=== PATIENT | female | born 1945 | race Caucasian/White ===

== ENCOUNTER 2019-08-05 09:51 | Inpatient (IN) ==
[2019-08-05] MEDS ORDERED: Isovue-370 500 ML BOTTLE IVP ONE ×3 (10:14→12:48)
[2019-08-05 10:50] LABS: Basophils # 0.2 K/mcL (0.0-0.2); Basophils % 0.7 %; Eosinophils # 0.2 K/mcL (0.0-0.6); Hematocrit 50.5 % (35.3-44.9); Hemoglobin 16.6 g/dL (11.5-15.4); Immature Granulocytes % 0.8 % (0-4); Lymphocytes # 3.1 K/mcL (0.6-4.6); Lymphocytes % 14.5 %; Mean Corpuscular HGB Conc 32.9 g/dL (31.6-35.5); Mean Corpuscular Hemoglobin 31.1 pg (28.0-33.3); Mean Corpuscular Volume 94.6 fL (83.0-100.0); Monocytes # 1.1 K/mcL (0.0-1.3); Monocytes % 5.1 %; Neutrophils # 16.9 K/mcL (1.6-8.9); Platelet Count 316 K/mcL (140-400); Red Blood Count 5.34 M/mcL (3.82-4.97); Red Cell Distribution Width 12.9 % (11.5-14.5); Segmented Neutrophils % 77.9 %; White Blood Count 21.7 K/mcL (4.3-11.1)
[2019-08-05 11:08] LABS: Prothrombin Time 11.9 Seconds (9.4-12.1)
[2019-08-05 11:11] LABS: Activated Partial Thrombo Time 26.3 Seconds (26.0-36.0)
[2019-08-05 11:12] LABS: Alanine Aminotransferase 21 Units/L (7-52); Albumin 4.4 g/dL (3.5-5.7); Albumin/Globulin Ratio 1.5 (1.1-2.2); Alkaline Phosphatase 80 Units/L (34-104); Aspartate Amino Transferase 18 Units/L (13-39); BUN/Creatinine Ratio 17 (6-26); Blood Urea Nitrogen 15 mg/dL (8-23); Calcium 9.3 mg/dL (8.6-10.3); Carbon Dioxide 22 mEq/L (23-29); Chloride 101 mEq/L (98-107); Glucose 297 mg/dL (70-105); Osmolality,Calculated 292 (280-300); Potassium 3.8 mEq/L (3.5-5.1); Sodium 135 mEq/L (136-145); Total Protein 7.4 g/dL (6.4-8.9); Troponin I < 0.03 ng/mL (< 0.04); eGFR For African Americans > 60 (> 60); eGFR For Non-African Americans > 60 (> 60)
[2019-08-05] MEDS ORDERED: Azithromycin 500 MG in 0.9 % Sodium Chloride 250 ML IVPB ONE (12:40)
[2019-08-05] MEDS ORDERED: Ondansetron 4 MG/2 ML VIAL IVP PRN (14:07)
[2019-08-05] MEDS ORDERED: Naloxone 0.4 MG/ML INJ IVP PRN (14:07)
[2019-08-05] MEDS ORDERED: Heparin 1,000 UNITS/500 mL 1,000 ML ONE (14:15)
[2019-08-05 14:18] LABS: ABG Base Excess -7 mEq/L (-2 to 3); ABG HCO3 24 mEq/L (21-27); ABG Oxygen Saturation 92 % (95-98); ABG PCO2 74 mmHg (35-45); ABG PH 7.12 pH Units (7.32-7.45); ABG PO2 84 mmHg (85-104); ABG TCO2 26 mEq/L (20-26); Blood Gas VT 14 cc
[2019-08-05] MEDS ORDERED: *HR* Rocuronium Bromide 50 MG/5 ML VIAL ONE ×2 (14:21→17:20)
[2019-08-05] MEDS ORDERED: Ondansetron 4 MG/2 ML VIAL ONE (14:22)
[2019-08-05] MEDS ORDERED: 0.9 % Sodium Chloride 500 ML ONE (14:43)
[2019-08-05] MEDS ORDERED: Dexamethasone 4 MG/ML VIAL ONE (15:19)
[2019-08-05] MEDS ORDERED: *HR* FentaNYL (PF) 100 MCG/2 ML VIAL ONE (15:20)
[2019-08-05] MEDS ORDERED: *HR* Propofol 200 MG/20 ML VIAL IVP ONE (15:20)
[2019-08-05] MEDS ORDERED: *HR* Heparin 5,000 UNIT/ML VIAL ONE (15:31)
[2019-08-05] MEDS ORDERED: Heparin 1,000 UNITS/500 mL 500 ML ONE (16:08)
[2019-08-05] MEDS: Vancomycin 1,250 MG/262.5 ML IV.SOLN IVPB SCH (16:50)
[2019-08-05] MEDS ORDERED: *HR* Rocuronium Bromide 50 MG/5 ML VIAL IVP ONE (17:09)
[2019-08-05] MEDS ORDERED: *HR* Etomidate 20 MG/10 ML AMPUL IVP ONE (17:09)
[2019-08-05] MEDS ORDERED: *HR* PHENYLEPHRINE 1,000 MCG/10 ML SYRINGE IVP ONE ×2 (17:15→17:41)
[2019-08-05] MEDS ORDERED: EPHEDrine 50 MG/ML VIAL ONE (17:18)
[2019-08-05] MEDS ORDERED: *HR* Vasopressin 20 UNIT/ML VIAL ONE (17:19)
[2019-08-05] MEDS ORDERED: Calcium Gluconate 1,000 MG/10 ML VIAL ONE (17:19)
[2019-08-05] MEDS ORDERED: Aminoglycoside Consult 1 EACH MC ONE (17:20)
[2019-08-05] MEDS ORDERED: Insulin Regular, Human 100 UNIT/ML ONE (17:25)
[2019-08-05] MEDS ORDERED: *HR* Heparin 5,000 UNIT/ML VIAL IVP PRN ×2 (19:27)
[2019-08-05] MEDS ORDERED: *HR* LORazepam 2 MG/ML VIAL IVP PRN ×3 (19:31)
[2019-08-05] MEDS ORDERED: *HR* Promethazine 25 MG/ML VIAL IVP PRN (19:31)
[2019-08-05 19:43] LABS: ABG Base Excess -9 mEq/L (-2 to 3); ABG HCO3 19 mEq/L (21-27); ABG Oxygen Saturation 96 % (95-98); ABG PCO2 48 mmHg (35-45); ABG PO2 97 mmHg (85-104); ABG TCO2 20 mEq/L (20-26); Blood Gas Modality ASSIST CONTROL; Blood Gas VT 450 cc
[2019-08-05] MEDS ORDERED: Midazolam HCl 50 MG/100 ML IV.SOLN IVC SCH (19:45)
[2019-08-05] MEDS: Piperacillin/Tazobactam 3.375 GM in 0.9 % Sodium Chloride Mini Bag 100 ML IVPB SCH (19:56)
[2019-08-05] MEDS: methylPREDNISolone 125 MG/2 ML VIAL IVP SCH ×2 (19:56→23:25)
[2019-08-05] MEDS: FentaNYL (PF) 1,000 MCG/100 ML IV.SOLN IVC SCH ×2 (19:57→20:46)
[2019-08-05] MEDS: Heparin 25,000 UNIT/250 ML D5W 25,000 UNIT/250 ML IV.SOLN IVC SCH (19:59)
[2019-08-05] MEDS: Ipratropium/Albuterol Neb 3 ML IH SCH ×2 (20:04→23:49)
[2019-08-05 20:13] LABS: VBG Ionized Calcium 1.18 mmol/L (1.15-1.35)
[2019-08-05 20:16] LABS: Basophils % 0.2 %; Hematocrit 46.7 % (35.3-44.9); Immature Granulocytes % 0.6 % (0-4); Lymphocytes # 0.6 K/mcL (0.6-4.6); Lymphocytes % 2.8 %; Mean Corpuscular HGB Conc 31.5 g/dL (31.6-35.5); Mean Corpuscular Hemoglobin 30.1 pg (28.0-33.3); Mean Corpuscular Volume 95.5 fL (83.0-100.0); Mean Platelet Volume 11.4 fL (9.4-12.4); Monocytes # 0.7 K/mcL (0.0-1.3); Monocytes % 3.5 %; Neutrophils # 19.6 K/mcL (1.6-8.9); Platelet Count 240 K/mcL (140-400); Red Blood Count 4.89 M/mcL (3.82-4.97); Segmented Neutrophils % 92.9 %; White Blood Count 21.1 K/mcL (4.3-11.1)
[2019-08-05 20:17] LABS: Hemoglobin 14.7 g/dL (11.5-15.4); INR 1.2; Prothrombin Time 14.1 Seconds (9.4-12.1)
[2019-08-05 20:22] LABS: Heparin anti-factor XA UFH 1.16 IU/mL (0.30-0.70)
[2019-08-05] MEDS ORDERED: Artificial Tears SOLN 15 ML BOTTLE BOTH EYES PRN (20:25)
[2019-08-05 20:30] LABS: BUN/Creatinine Ratio 20 (6-26); Blood Urea Nitrogen 16 mg/dL (8-23); Calcium 8.2 mg/dL (8.6-10.3); Carbon Dioxide 17 mEq/L (23-29); Chloride 110 mEq/L (98-107); Glucose 205 mg/dL (70-105); Magnesium 1.7 mg/dL (1.6-2.6); Osmolality,Calculated 295 (280-300); Potassium 4.1 mEq/L (3.5-5.1); Sodium 139 mEq/L (136-145); eGFR For African Americans > 60 (> 60); eGFR For Non-African Americans > 60 (> 60)
[2019-08-05] MEDS: Chlorhexidine Rinse 15 ML MOUTHWASH MM SCH (20:48)
[2019-08-05] MEDS: Artificial Tears SOLN 15 ML BOTTLE BOTH EYES SCH (20:48)
[2019-08-05] MEDS ORDERED: Perflutren Lipid Microsphere 1.3 ML in 0.9 % Sodium Chloride 8.7 ML IVP ONE (20:50)
[2019-08-05 21:20] LABS: Bilirubin,Urine Negative (Negative); Blood,Urine Small (Negative); Clarity,Urine Clear (Clear); Color,Urine Light-Yellow (Yellow); Glucose,Urine (UA) 500 mg/dL (Normal); Ketones,Urine Negative (Negative); Leukocyte Esterase,Urine Negative (Negative); Mucus,Urine Few per lpf (None-Few); Nitrite,Urine Negative (Negative); Protein,Urine 30 mg/dL (Neg-Trace); RBC,Urine 0-3 per hpf (0-3); Specific Gravity,Urine > 1.030 (1.010-1.025); Squamous Epithelial Cell,Urine Few per hpf (None-Few); Urobilinogen,Urine Normal (Normal); WBC,Urine 0-3 per hpf (0-3)
[2019-08-05 21:29] LABS: Amphetamine Screen,Urine Negative ng/mL (Cutoff=1000); Barbiturate Screen,Urine Negative ng/mL (Cutoff=200); Benzodiazepines Screen,Urine Negative ng/mL (Cutoff=200); Cannabinoid Screen,Urine Negative ng/mL (Cutoff = 50); Cocaine Screen,Urine Negative ng/mL (Cutoff= 300); Opiate Screen,Urine Negative ng/mL (Cutoff=300); Phencyclidine Screen,Urine Negative ng/mL (Cutoff=25)
[2019-08-05 23:53] LABS: ABG Base Excess -9 mEq/L (-2 to 3); ABG HCO3 19 mEq/L (21-27); ABG Oxygen Saturation 99 % (95-98); ABG PCO2 47 mmHg (35-45); ABG PH 7.21 pH Units (7.32-7.45); ABG PO2 138 mmHg (85-104); ABG TCO2 20 mEq/L (20-26); Blood Gas Modality ASSIST CONTROL; Blood Gas VT 450 cc
[2019-08-06] MEDS: Piperacillin/Tazobactam 3.375 GM in 0.9 % Sodium Chloride Mini Bag 100 ML IVPB SCH ×4 (00:32→23:30)
[2019-08-06] MEDS: Insulin LISPRO 300 UNITS/3 ML VIAL SQ SCH ×4 (00:39→18:15)
[2019-08-06] MEDS ORDERED: 0.9 % Sodium Chloride 1,000 ML IVC SCH (01:00)
[2019-08-06] MEDS: Vancomycin 1,250 MG/262.5 ML IV.SOLN IVPB SCH ×2 (03:18→16:26)
[2019-08-06] MEDS: Artificial Tears SOLN 15 ML BOTTLE BOTH EYES SCH ×2 (03:18→09:00)
[2019-08-06 03:28] LABS: Basophils % 0.1 %; Hematocrit 43.9 % (35.3-44.9); Immature Granulocytes % 0.3 % (0-4); Lymphocytes # 0.5 K/mcL (0.6-4.6); Lymphocytes % 2.3 %; Mean Corpuscular HGB Conc 31.9 g/dL (31.6-35.5); Mean Corpuscular Hemoglobin 30.2 pg (28.0-33.3); Mean Corpuscular Volume 94.6 fL (83.0-100.0); Mean Platelet Volume 11.5 fL (9.4-12.4); Monocytes # 0.6 K/mcL (0.0-1.3); Monocytes % 2.7 %; Neutrophils # 19.1 K/mcL (1.6-8.9); Platelet Count 207 K/mcL (140-400); Red Blood Count 4.64 M/mcL (3.82-4.97); Segmented Neutrophils % 94.6 %; White Blood Count 20.2 K/mcL (4.3-11.1)
[2019-08-06 03:45] LABS: BUN/Creatinine Ratio 17 (6-26); Blood Urea Nitrogen 16 mg/dL (8-23); Carbon Dioxide 15 mEq/L (23-29); Chloride 108 mEq/L (98-107); Glucose 301 mg/dL (70-105); Magnesium 1.8 mg/dL (1.6-2.6); Osmolality,Calculated 298 (280-300); Potassium 3.9 mEq/L (3.5-5.1); Sodium 138 mEq/L (136-145); eGFR For African Americans > 60 (> 60); eGFR For Non-African Americans 57 (> 60)
[2019-08-06] MEDS: Ipratropium/Albuterol Neb 3 ML IH SCH ×6 (04:11→23:21)
[2019-08-06 04:21] LABS: ABG Base Excess -9 mEq/L (-2 to 3); ABG HCO3 17 mEq/L (21-27); ABG Oxygen Saturation 96 % (95-98); ABG PCO2 37 mmHg (35-45); ABG PH 7.27 pH Units (7.32-7.45); ABG PO2 89 mmHg (85-104); ABG TCO2 18 mEq/L (20-26); Blood Gas Modality ASSIST CONTROL; Blood Gas VT 450 cc
[2019-08-06] MEDS ORDERED: Calcium Gluconate 1gm/50mL 1 GM/50 ML BAG IVPB PRN (05:23)
[2019-08-06] MEDS: Doxycycline 100 MG in 0.9 % Sodium Chloride Mini Bag 100 ML IVPB SCH ×2 (05:38→16:23)
[2019-08-06] MEDS: methylPREDNISolone 125 MG/2 ML VIAL IVP SCH ×4 (05:38→23:30)
[2019-08-06] MEDS: Pantoprazole 40 MG VIAL IVP SCH (09:00)
[2019-08-06] MEDS: Chlorhexidine Rinse 15 ML MOUTHWASH MM SCH (09:00)
[2019-08-06] MEDS: Dexmedetomidine HCl 400 MCG/100 ML MLS IVC SCH (09:16)
[2019-08-06 09:17] LABS: ABG Base Excess -4 mEq/L (-2 to 3); ABG HCO3 21 mEq/L (21-27); ABG Oxygen Saturation 95 % (95-98); ABG PCO2 37 mmHg (35-45); ABG PH 7.36 pH Units (7.32-7.45); ABG PO2 77 mmHg (85-104); ABG TCO2 22 mEq/L (20-26); Blood Gas Modality CPAP/PS
[2019-08-06 12:19] LABS: BUN/Creatinine Ratio 17 (6-26); Blood Urea Nitrogen 15 mg/dL (8-23); Calcium 7.9 mg/dL (8.6-10.3); Carbon Dioxide 21 mEq/L (23-29); Chloride 111 mEq/L (98-107); Glucose 229 mg/dL (70-105); Magnesium 2.2 mg/dL (1.6-2.6); Osmolality,Calculated 296 (280-300); Potassium 4.1 mEq/L (3.5-5.1); Sodium 139 mEq/L (136-145); eGFR For African Americans > 60 (> 60); eGFR For Non-African Americans > 60 (> 60)
[2019-08-06] MEDS ORDERED: Sodium Bicarbonate 150 MEQ in D5% in Water 1,000 ML IVC SCH (12:45)
[2019-08-06] MEDS: Thiamine (B-1) 100 MG, Folic Acid 1 MG, MVI, adult with vitamin K 10 ML in 0.9 % Sodi... IVPB SCH (16:23)
[2019-08-06 19:30] LABS: BUN/Creatinine Ratio 20 (6-26); Blood Urea Nitrogen 16 mg/dL (8-23); Calcium 8.3 mg/dL (8.6-10.3); Carbon Dioxide 23 mEq/L (23-29); Chloride 112 mEq/L (98-107); Glucose 166 mg/dL (70-105); Osmolality,Calculated 297 (280-300); Potassium 4.4 mEq/L (3.5-5.1); Sodium 141 mEq/L (136-145); eGFR For African Americans > 60 (> 60); eGFR For Non-African Americans > 60 (> 60)
[2019-08-07] MEDS: Insulin LISPRO 300 UNITS/3 ML VIAL SQ SCH ×5 (00:16→23:50)
[2019-08-07] MEDS ORDERED: *HR* Metoprolol 5 MG/5 ML VIAL IVP ONE (03:26)
[2019-08-07 03:31] LABS: Basophils % 0.1 %; Hematocrit 38.4 % (35.3-44.9); Hemoglobin 12.6 g/dL (11.5-15.4); Immature Granulocytes % 0.8 % (0-4); Lymphocytes # 0.5 K/mcL (0.6-4.6); Lymphocytes % 2.5 %; Mean Corpuscular HGB Conc 32.8 g/dL (31.6-35.5); Mean Corpuscular Hemoglobin 31.1 pg (28.0-33.3); Mean Corpuscular Volume 94.8 fL (83.0-100.0); Mean Platelet Volume 11.6 fL (9.4-12.4); Monocytes # 0.7 K/mcL (0.0-1.3); Platelet Count 188 K/mcL (140-400); Red Blood Count 4.05 M/mcL (3.82-4.97); Red Cell Distribution Width 13.3 % (11.5-14.5); Segmented Neutrophils % 93.6 %; White Blood Count 21.3 K/mcL (4.3-11.1)
[2019-08-07] MEDS: Levalbuterol Neb 1.25 MG/3 ML IH SCH ×4 (03:47→21:50)
[2019-08-07 03:48] LABS: BUN/Creatinine Ratio 23 (6-26); Blood Urea Nitrogen 19 mg/dL (8-23); Calcium 8.4 mg/dL (8.6-10.3); Carbon Dioxide 21 mEq/L (23-29); Chloride 110 mEq/L (98-107); Glucose 178 mg/dL (70-105); Osmolality,Calculated 295 (280-300); Potassium 4.3 mEq/L (3.5-5.1); Sodium 139 mEq/L (136-145); eGFR For African Americans > 60 (> 60); eGFR For Non-African Americans > 60 (> 60)
[2019-08-07] MEDS: Vancomycin 1,250 MG/262.5 ML IV.SOLN IVPB SCH ×2 (04:13→16:24)
[2019-08-07] MEDS: Heparin 25,000 UNIT/250 ML D5W 25,000 UNIT/250 ML IV.SOLN IVC SCH (04:26)
[2019-08-07] MEDS: Dexmedetomidine HCl 400 MCG/100 ML MLS IVC SCH (04:34)
[2019-08-07] MEDS ORDERED: *HR* Metoprolol 5 MG/5 ML VIAL IVP PRN (05:05)
[2019-08-07] MEDS: methylPREDNISolone 125 MG/2 ML VIAL IVP SCH ×4 (05:14→23:05)
[2019-08-07] MEDS: Doxycycline 100 MG in 0.9 % Sodium Chloride Mini Bag 100 ML IVPB SCH ×2 (05:14→18:02)
[2019-08-07] MEDS: Piperacillin/Tazobactam 3.375 GM in 0.9 % Sodium Chloride Mini Bag 100 ML IVPB SCH ×3 (08:16→23:05)
[2019-08-07] MEDS: Pantoprazole 40 MG VIAL IVP SCH (08:19)
[2019-08-07 08:52] LABS: Magnesium 2.3 mg/dL (1.6-2.6); Phosphorous 3.3 mg/dL (2.7-4.5)
[2019-08-07 09:26] LABS: ABG Base Excess 0 mEq/L (-2 to 3); ABG HCO3 25 mEq/L (21-27); ABG Oxygen Saturation 96 % (95-98); ABG PCO2 42 mmHg (35-45); ABG PH 7.38 pH Units (7.32-7.45); ABG PO2 85 mmHg (85-104); ABG TCO2 26 mEq/L (20-26)
[2019-08-07 10:00] LABS: Albumin 3.2 g/dL (3.5-5.7); Albumin/Globulin Ratio 1.3 (1.1-2.2); Bilirubin,Direct 0.3 mg/dL (0.0-0.2); Bilirubin,Indirect 0.5 mg/dL (0.0-1.0); Bilirubin,Total 0.8 mg/dL (0.3-1.0); Globulin 2.5 g/dL (2.4-3.5); Total Protein 5.7 g/dL (6.4-8.9)
[2019-08-07 16:20] LABS: Chol/HDL Ratio 3.7 (0-4.9)
[2019-08-07] MEDS: Thiamine (B-1) 100 MG, Folic Acid 1 MG, MVI, adult with vitamin K 10 ML in 0.9 % Sodi... IVPB SCH (19:12)
[2019-08-08] MEDS: Dexmedetomidine HCl 400 MCG/100 ML MLS IVC SCH (00:14)
[2019-08-08] MEDS: Vancomycin 1,250 MG/262.5 ML IV.SOLN IVPB SCH (03:05)
[2019-08-08] MEDS: Levalbuterol Neb 1.25 MG/3 ML IH SCH ×4 (04:13→22:46)
[2019-08-08] MEDS: methylPREDNISolone 125 MG/2 ML VIAL IVP SCH (05:18)
[2019-08-08] MEDS: Doxycycline 100 MG in 0.9 % Sodium Chloride Mini Bag 100 ML IVPB SCH (05:18)
[2019-08-08] MEDS: Insulin LISPRO 300 UNITS/3 ML VIAL SQ SCH ×4 (05:32→20:08)
[2019-08-08 06:08] LABS: Basophils % 0.1 %; Hematocrit 38.3 % (35.3-44.9); Hemoglobin 11.9 g/dL (11.5-15.4); Immature Granulocytes % 1.4 % (0-4); Lymphocytes # 0.6 K/mcL (0.6-4.6); Lymphocytes % 3.1 %; Mean Corpuscular HGB Conc 31.1 g/dL (31.6-35.5); Mean Corpuscular Hemoglobin 30.3 pg (28.0-33.3); Mean Corpuscular Volume 97.5 fL (83.0-100.0); Mean Platelet Volume 11.9 fL (9.4-12.4); Monocytes # 0.6 K/mcL (0.0-1.3); Monocytes % 3.2 %; Neutrophils # 17.3 K/mcL (1.6-8.9); Platelet Count 191 K/mcL (140-400); Red Blood Count 3.93 M/mcL (3.82-4.97); Red Cell Distribution Width 13.6 % (11.5-14.5); Segmented Neutrophils % 92.2 %; White Blood Count 18.8 K/mcL (4.3-11.1)
[2019-08-08 06:10] LABS: VBG Ionized Calcium 1.16 mmol/L (1.15-1.35)
[2019-08-08 06:30] LABS: BUN/Creatinine Ratio 29 (6-26); Blood Urea Nitrogen 25 mg/dL (8-23); Calcium 8.7 mg/dL (8.6-10.3); Carbon Dioxide 21 mEq/L (23-29); Chloride 110 mEq/L (98-107); Glucose 189 mg/dL (70-105); Magnesium 2.1 mg/dL (1.6-2.6); Osmolality,Calculated 297 (280-300); Phosphorous 2.2 mg/dL (2.7-4.5); Potassium 4.1 mEq/L (3.5-5.1); Sodium 139 mEq/L (136-145); eGFR For African Americans > 60 (> 60); eGFR For Non-African Americans > 60 (> 60)
[2019-08-08] MEDS ORDERED: Amoxicillin/Clavulanate 500 MG TABLET PO SCH ×3 (08:45→17:00)
[2019-08-08] MEDS: Pantoprazole 40 MG VIAL IVP SCH (09:00)
[2019-08-08] MEDS: Piperacillin/Tazobactam 3.375 GM in 0.9 % Sodium Chloride Mini Bag 100 ML IVPB SCH (09:22)
[2019-08-08] MEDS ORDERED: *HR* Heparin 5,000 UNIT/ML VIAL IVP PRN ×2 (09:26)
[2019-08-08] MEDS ORDERED: Ondansetron 4 MG/2 ML VIAL IVP PRN (09:26)
[2019-08-08] MEDS ORDERED: Naloxone 0.4 MG/ML INJ IVP PRN (09:26)
[2019-08-08] MEDS ORDERED: *HR* Metoprolol 5 MG/5 ML VIAL IVP PRN (09:26)
[2019-08-08] MEDS ORDERED: *HR* LORazepam 2 MG/ML VIAL IVP PRN ×3 (09:26)
[2019-08-08] MEDS ORDERED: *HR* Dextrose 50 % in Water (Vial) 50 ML VIAL IVP PRN (10:46)
[2019-08-08] MEDS ORDERED: D5% in Water 1,000 ML IVC PRN (10:46)
[2019-08-08] MEDS ORDERED: Dextrose Gel 15 GM/37.5 ML TUBE PO PRN ×2 (10:46)
[2019-08-08] MEDS: lisinopriL 20 MG TABLET PO SCH (11:09)
[2019-08-08] MEDS: Heparin 25,000 UNIT/250 ML D5W 25,000 UNIT/250 ML IV.SOLN IVC SCH (11:14)
[2019-08-08] MEDS ORDERED: Insulin LISPRO 300 UNITS/3 ML VIAL SQ SCH (12:00)
[2019-08-08] MEDS ORDERED: methylPREDNISolone 125 MG/2 ML VIAL IVP SCH (12:00)
[2019-08-08 14:34] LABS: ABG Base Excess -11 mEq/L (-2 to 3); ABG Chloride 109 mEq/L (98-107); ABG Glucose 265 mg/dL (60-95); ABG HCO3 20 mEq/L (21-27); ABG Ionized Calcium 1.15 mmol/L (1.15-1.35); ABG Oxygen Saturation 89 % (95-98); ABG PCO2 60 mmHg (35-45); ABG PH 7.12 pH Units (7.32-7.45); ABG PO2 77 mmHg (85-104); ABG TCO2 21 mEq/L (20-26)
[2019-08-08 14:34] LABS: ABG Base Excess -8 mEq/L (-2 to 3); ABG Chloride 108 mEq/L (98-107); ABG Glucose 338 mg/dL (60-95); ABG HCO3 21 mEq/L (21-27); ABG Ionized Calcium 1.01 mmol/L (1.15-1.35); ABG Oxygen Saturation 97 % (95-98); ABG PCO2 53 mmHg (35-45); ABG PO2 105 mmHg (85-104); ABG TCO2 23 mEq/L (20-26)
[2019-08-08] MEDS ORDERED: Thiamine (B-1) 100 MG, Folic Acid 1 MG, MVI, adult with vitamin K 10 ML in 0.9 % Sodi... IVPB SCH (18:00)
[2019-08-08] MEDS: Metoprolol XL (24 HR) Succ 50 MG TAB.ER.24H PO SCH (20:07)
[2019-08-09 00:47] LABS: Creatine Kinase 3321 Units/L (30-223)
[2019-08-09] MEDS: Levalbuterol Neb 1.25 MG/3 ML IH SCH ×4 (04:06→21:46)
[2019-08-09 05:56] LABS: Hematocrit 33.4 % (35.3-44.9); Hemoglobin 10.8 g/dL (11.5-15.4); Mean Corpuscular HGB Conc 32.3 g/dL (31.6-35.5); Mean Corpuscular Hemoglobin 30.9 pg (28.0-33.3); Mean Corpuscular Volume 95.4 fL (83.0-100.0); Mean Platelet Volume 11.5 fL (9.4-12.4); Platelet Count 150 K/mcL (140-400); Red Cell Distribution Width 13.7 % (11.5-14.5); White Blood Count 17.6 K/mcL (4.3-11.1)
[2019-08-09 06:18] LABS: BUN/Creatinine Ratio 28 (6-26); Blood Urea Nitrogen 22 mg/dL (8-23); Calcium 8.5 mg/dL (8.6-10.3); Carbon Dioxide 27 mEq/L (23-29); Chloride 110 mEq/L (98-107); Creatine Kinase 1743 Units/L (30-223); Glucose 166 mg/dL (70-105); Osmolality,Calculated 301 (280-300); Potassium 3.8 mEq/L (3.5-5.1); Sodium 142 mEq/L (136-145); eGFR For African Americans > 60 (> 60); eGFR For Non-African Americans > 60 (> 60)
[2019-08-09] MEDS: levoFLOXacin 500 MG TABLET PO SCH (08:15)
[2019-08-09] MEDS: Metoprolol XL (24 HR) Succ 50 MG TAB.ER.24H PO SCH ×2 (08:15→21:08)
[2019-08-09] MEDS: lisinopriL 20 MG TABLET PO SCH (08:15)
[2019-08-09] MEDS: Insulin LISPRO 300 UNITS/3 ML VIAL SQ SCH ×4 (08:16→21:07)
[2019-08-09] MEDS ORDERED: Pantoprazole 40 MG VIAL IVP SCH (09:00)
[2019-08-09] MEDS ORDERED: predniSONE 20 MG TABLET PO SCH (09:00)
[2019-08-09] MEDS: Heparin 25,000 UNIT/250 ML D5W 25,000 UNIT/250 ML IV.SOLN IVC SCH (12:41)
[2019-08-09] MEDS: Apixaban 5 MG TABLET PO SCH (21:06)
[2019-08-10] MEDS: Levalbuterol Neb 1.25 MG/3 ML IH SCH ×4 (03:39→21:52)
[2019-08-10 05:27] LABS: Hematocrit 34.9 % (35.3-44.9); Hemoglobin 11.5 g/dL (11.5-15.4); Mean Corpuscular Hemoglobin 30.3 pg (28.0-33.3); Mean Corpuscular Volume 92.1 fL (83.0-100.0); Platelet Count 160 K/mcL (140-400); Red Blood Count 3.79 M/mcL (3.82-4.97); Red Cell Distribution Width 13.4 % (11.5-14.5); White Blood Count 18.3 K/mcL (4.3-11.1)
[2019-08-10 05:38] LABS: BUN/Creatinine Ratio 28 (6-26); Blood Urea Nitrogen 20 mg/dL (8-23); Calcium 8.5 mg/dL (8.6-10.3); Carbon Dioxide 27 mEq/L (23-29); Chloride 107 mEq/L (98-107); Glucose 140 mg/dL (70-105); Osmolality,Calculated 295 (280-300); Potassium 3.9 mEq/L (3.5-5.1); Sodium 140 mEq/L (136-145); eGFR For African Americans > 60 (> 60); eGFR For Non-African Americans > 60 (> 60)
[2019-08-10] MEDS: Aspirin Enteric Coated 81 MG Tablet PO SCH (07:37)
[2019-08-10] MEDS: lisinopriL 20 MG TABLET PO SCH (07:37)
[2019-08-10] MEDS: levoFLOXacin 500 MG TABLET PO SCH (07:37)
[2019-08-10] MEDS: Apixaban 5 MG TABLET PO SCH (07:38)
[2019-08-10] MEDS: Metoprolol XL (24 HR) Succ 50 MG TAB.ER.24H PO SCH ×2 (07:38→21:49)
[2019-08-10] MEDS: Insulin LISPRO 300 UNITS/3 ML VIAL SQ SCH ×4 (09:49→21:36)
[2019-08-10] MEDS ORDERED: *HR* Heparin 5,000 UNIT/ML VIAL IVP PRN (17:39)
[2019-08-10] MEDS ORDERED: Heparin 25,000 UNIT/250 ML D5W 25,000 UNIT/250 ML IV.SOLN IVC SCH (17:45)
[2019-08-10 18:17] LABS: Heparin anti-factor XA UFH 0.63 IU/mL (0.30-0.70); INR 1.3; Prothrombin Time 14.5 Seconds (9.4-12.1)
[2019-08-11 01:43] LABS: Basophils # 0.1 K/mcL (0.0-0.2); Basophils % 0.6 %; Eosinophils # 0.5 K/mcL (0.0-0.6); Eosinophils % 2.6 %; Hematocrit 36.2 % (35.3-44.9); Hemoglobin 12.1 g/dL (11.5-15.4); Lymphocytes # 3.4 K/mcL (0.6-4.6); Lymphocytes % 19.7 %; Mean Corpuscular HGB Conc 33.4 g/dL (31.6-35.5); Mean Corpuscular Hemoglobin 31.2 pg (28.0-33.3); Mean Corpuscular Volume 93.3 fL (83.0-100.0); Mean Platelet Volume 11.8 fL (9.4-12.4); Monocytes # 0.8 K/mcL (0.0-1.3); Monocytes % 4.8 %; Neutrophils # 12.1 K/mcL (1.6-8.9); Nucleated Red Blood Cells 0.1 /100 WBC (0); Platelet Count 177 K/mcL (140-400); Red Blood Count 3.88 M/mcL (3.82-4.97); Red Cell Distribution Width 13.4 % (11.5-14.5); Segmented Neutrophils % 69.3 %; White Blood Count 17.5 K/mcL (4.3-11.1)
[2019-08-11 02:03] LABS: BUN/Creatinine Ratio 25 (6-26); Blood Urea Nitrogen 17 mg/dL (8-23); Calcium 8.1 mg/dL (8.6-10.3); Carbon Dioxide 28 mEq/L (23-29); Chloride 104 mEq/L (98-107); Creatine Kinase 713 Units/L (30-223); Glucose 212 mg/dL (70-105); Magnesium 1.8 mg/dL (1.6-2.6); Osmolality,Calculated 296 (280-300); Phosphorous 3.5 mg/dL (2.7-4.5); Potassium 3.7 mEq/L (3.5-5.1); Sodium 139 mEq/L (136-145); eGFR For African Americans > 60 (> 60); eGFR For Non-African Americans > 60 (> 60)
[2019-08-11] MEDS: Heparin 25,000 UNIT/250 ML D5W 25,000 UNIT/250 ML IV.SOLN IVC SCH ×3 (02:44→19:05)
[2019-08-11] MEDS: Levalbuterol Neb 1.25 MG/3 ML IH SCH ×4 (03:18→21:54)
[2019-08-11] MEDS: Aspirin Enteric Coated 81 MG Tablet PO SCH (07:58)
[2019-08-11] MEDS: Insulin LISPRO 300 UNITS/3 ML VIAL SQ SCH ×4 (07:58→21:49)
[2019-08-11] MEDS: levoFLOXacin 500 MG TABLET PO SCH (08:00)
[2019-08-11] MEDS: Metoprolol XL (24 HR) Succ 50 MG TAB.ER.24H PO SCH ×2 (08:00→21:48)
[2019-08-11] MEDS: lisinopriL 20 MG TABLET PO SCH (08:00)
[2019-08-11] MEDS: Magnesium Oxide 400 MG TABLET PO SCH (08:03)
[2019-08-11] MEDS ORDERED: Potassium Chloride Elixir 20 MEQ/15 ML UDC PO ONE (09:00)
[2019-08-11] MEDS ORDERED: Isovue-370 500 ML BOTTLE IVP ONE (11:07)
[2019-08-11] MEDS: Folic Acid 1 MG TABLET PO SCH (11:31)
[2019-08-11] MEDS: Thiamine (B-1) 100 MG TABLET PO SCH (11:31)
[2019-08-11] MEDS: *HR* Heparin 5,000 UNIT/ML VIAL IVP PRN (17:15)
[2019-08-12 00:37] LABS: Basophils # 0.1 K/mcL (0.0-0.2); Basophils % 0.3 %; Eosinophils # 0.6 K/mcL (0.0-0.6); Eosinophils % 3.4 %; Hematocrit 37.4 % (35.3-44.9); Hemoglobin 12.1 g/dL (11.5-15.4); Immature Granulocytes % 2.2 % (0-4); Lymphocytes # 2.8 K/mcL (0.6-4.6); Lymphocytes % 16.3 %; Mean Corpuscular HGB Conc 32.4 g/dL (31.6-35.5); Mean Corpuscular Hemoglobin 30.6 pg (28.0-33.3); Mean Corpuscular Volume 94.7 fL (83.0-100.0); Mean Platelet Volume 12.1 fL (9.4-12.4); Monocytes # 0.9 K/mcL (0.0-1.3); Monocytes % 5.1 %; Neutrophils # 12.6 K/mcL (1.6-8.9); Platelet Count 195 K/mcL (140-400); Red Blood Count 3.95 M/mcL (3.82-4.97); Red Cell Distribution Width 13.4 % (11.5-14.5); Segmented Neutrophils % 72.7 %; White Blood Count 17.4 K/mcL (4.3-11.1)
[2019-08-12 00:51] LABS: BUN/Creatinine Ratio 18 (6-26); Blood Urea Nitrogen 13 mg/dL (8-23); Calcium 8.4 mg/dL (8.6-10.3); Carbon Dioxide 30 mEq/L (23-29); Chloride 103 mEq/L (98-107); Glucose 145 mg/dL (70-105); Magnesium 1.9 mg/dL (1.6-2.6); Osmolality,Calculated 289 (280-300); Potassium 3.9 mEq/L (3.5-5.1); Sodium 138 mEq/L (136-145); eGFR For African Americans > 60 (> 60); eGFR For Non-African Americans > 60 (> 60)
[2019-08-12] MEDS: Levalbuterol Neb 1.25 MG/3 ML IH SCH ×4 (03:35→22:11)
[2019-08-12] MEDS: Insulin LISPRO 300 UNITS/3 ML VIAL SQ SCH ×4 (07:35→21:30)
[2019-08-12] MEDS: levoFLOXacin 500 MG TABLET PO SCH (08:41)
[2019-08-12] MEDS: Aspirin Enteric Coated 81 MG Tablet PO SCH (08:41)
[2019-08-12] MEDS: Magnesium Oxide 400 MG TABLET PO SCH (08:41)
[2019-08-12] MEDS: Thiamine (B-1) 100 MG TABLET PO SCH (08:42)
[2019-08-12] MEDS: Metoprolol XL (24 HR) Succ 50 MG TAB.ER.24H PO SCH ×2 (08:42→20:23)
[2019-08-12] MEDS: Folic Acid 1 MG TABLET PO SCH (08:42)
[2019-08-12] MEDS: lisinopriL 20 MG TABLET PO SCH (08:42)
[2019-08-12] MEDS: *HR* Heparin 5,000 UNIT/ML VIAL IVP PRN (13:51)
[2019-08-13] MEDS: Heparin 25,000 UNIT/250 ML D5W 25,000 UNIT/250 ML IV.SOLN IVC SCH (00:09)
[2019-08-13 00:41] LABS: Basophils % 0.2 %; Eosinophils # 0.4 K/mcL (0.0-0.6); Eosinophils % 3.3 %; Hematocrit 36.4 % (35.3-44.9); Hemoglobin 11.7 g/dL (11.5-15.4); Immature Granulocytes % 2.2 % (0-4); Lymphocytes # 2.2 K/mcL (0.6-4.6); Lymphocytes % 17.8 %; Mean Corpuscular HGB Conc 32.1 g/dL (31.6-35.5); Mean Corpuscular Hemoglobin 30.4 pg (28.0-33.3); Mean Corpuscular Volume 94.5 fL (83.0-100.0); Mean Platelet Volume 11.3 fL (9.4-12.4); Monocytes # 0.8 K/mcL (0.0-1.3); Monocytes % 6.1 %; Neutrophils # 8.6 K/mcL (1.6-8.9); Platelet Count 168 K/mcL (140-400); Red Blood Count 3.85 M/mcL (3.82-4.97); Red Cell Distribution Width 13.4 % (11.5-14.5); Segmented Neutrophils % 70.4 %; White Blood Count 12.2 K/mcL (4.3-11.1)
[2019-08-13 01:03] LABS: BUN/Creatinine Ratio 19 (6-26); Blood Urea Nitrogen 14 mg/dL (8-23); Calcium 8.3 mg/dL (8.6-10.3); Carbon Dioxide 27 mEq/L (23-29); Chloride 104 mEq/L (98-107); Creatine Kinase 346 Units/L (30-223); Glucose 206 mg/dL (70-105); Magnesium 1.8 mg/dL (1.6-2.6); Osmolality,Calculated 292 (280-300); Potassium 3.9 mEq/L (3.5-5.1); Sodium 138 mEq/L (136-145); eGFR For African Americans > 60 (> 60); eGFR For Non-African Americans > 60 (> 60)
[2019-08-13] MEDS: Levalbuterol Neb 1.25 MG/3 ML IH SCH ×4 (03:44→22:19)
[2019-08-13] MEDS: Thiamine (B-1) 100 MG TABLET PO SCH (08:15)
[2019-08-13] MEDS: Aspirin Enteric Coated 81 MG Tablet PO SCH (08:15)
[2019-08-13] MEDS: lisinopriL 20 MG TABLET PO SCH (08:15)
[2019-08-13] MEDS: Metoprolol XL (24 HR) Succ 50 MG TAB.ER.24H PO SCH ×2 (08:15→20:59)
[2019-08-13] MEDS: Magnesium Oxide 400 MG TABLET PO SCH (08:15)
[2019-08-13] MEDS: Folic Acid 1 MG TABLET PO SCH (08:16)
[2019-08-13] MEDS: levoFLOXacin 500 MG TABLET PO SCH (08:16)
[2019-08-13] MEDS: Insulin LISPRO 300 UNITS/3 ML VIAL SQ SCH ×4 (08:16→20:35)
[2019-08-13] MEDS: Apixaban 5 MG TABLET PO SCH (16:05)
[2019-08-14] MEDS: Levalbuterol Neb 1.25 MG/3 ML IH SCH ×2 (03:22→09:39)
[2019-08-14] MEDS: Insulin LISPRO 300 UNITS/3 ML VIAL SQ SCH (08:31)
[2019-08-14] MEDS: Aspirin Enteric Coated 81 MG Tablet PO SCH (08:32)
[2019-08-14] MEDS: Metoprolol XL (24 HR) Succ 50 MG TAB.ER.24H PO SCH (08:32)
[2019-08-14] MEDS: Magnesium Oxide 400 MG TABLET PO SCH (08:32)
[2019-08-14] MEDS: levoFLOXacin 500 MG TABLET PO SCH (08:33)
[2019-08-14] MEDS: lisinopriL 20 MG TABLET PO SCH (08:33)
[2019-08-14] MEDS: Thiamine (B-1) 100 MG TABLET PO SCH (08:33)
[2019-08-14] MEDS: Apixaban 5 MG TABLET PO SCH (08:33)
[2019-08-14] MEDS: Folic Acid 1 MG TABLET PO SCH (08:34)
[2019-08-14 10:27] VITALS: BP 120/69
== END 2019-08-14 11:17 | disposition home health service (06) | DRG 853 ==
LOC: SUATTDRO → EMEROOARM 09:51 → ICNU 17:04 → SUATTDRO 17:04 → ICNU 17:14 → 2NNU 08-08 13:48 → 2ANU 08-11 18:37
PROVIDERS: ADMIT Internal Medicine; ATTEND Internal Medicine